=== PATIENT | male | born 1940 | race Caucasian/White ===

== ENCOUNTER → 2023-11-27 09:17 | Outpatient (REF) | payer OTHER, SELFPAY | LOC: DHCBS MAIN 09:17 | PROVIDERS: ATTENDING PHYSICIAN Internal Medicine Cardiovascular Disease; FAMILY PHYSICIAN Internal Medicine | DX: I35.0 Nonrheumatic aortic (valve) stenosis (principal) | CPT/HCPCS: 93306 ==